=== PATIENT | male | born 1960 | race Caucasian/White ===

== ENCOUNTER 2025-04-11 11:36 | Outpatient (CLI) | payer BC ==
[2025-04-11 13:00] LABS: Estimated GFR - POC 85.0
[2025-04-11] MEDS ORDERED: Iopamidol 370 76% 100 ML VIAL ONE (14:36)
== END 2025-04-11 11:37 | disposition home or self-care (01) ==
LOC: CT 11:36
PROVIDERS: ATTEND Otolaryngology Plastic Surgery within the Head & Neck
DX: R91.8 Other nonspecific abnormal finding of lung field (principal); K76.0 Fatty (change of) liver, not elsewhere classified
CPT/HCPCS: 36415; 71260; 82565; Q9967

== ENCOUNTER 2025-05-07 09:30 | Outpatient (CLI) | payer BC | END 2025-05-07 09:31 | disposition home or self-care (01) | LOC: PET 09:30 | PROVIDERS: ATTEND Internal Medicine Hematology & Oncology | DX: C07 Malignant neoplasm of parotid gland (principal); C78.02 Secondary malignant neoplasm of left lung; C78.01 Secondary malignant neoplasm of right lung; K11.8 Other diseases of salivary glands; R59.0 Localized enlarged lymph nodes | CPT/HCPCS: 78815; A9552 ==